=== PATIENT | female | born 1950 | race Caucasian/White ===

== ENCOUNTER 2017-06-05 09:00 | Emergency (ER) | payer MEDICARE, OTHER ==
[~2017-06-05] VITALS: Ht 160 cm; Wt 88.0 kg
[~2017-06-05 09:00] MED LIST: BACTDS PO; HUMULOG; IBUP-1542 PO; IBUP-725 PO; TYLENOL W/ CODEINE; [UNRECOGNIZED DRUG - CODE] PO; [UNRECOGNIZED DRUG - OTHER] SC
[2017-06-05 09:02] VITALS: Ht 160 cm; Wt 88.0 kg
[2017-06-05] MEDS ORDERED: SOD CHLORIDE 0.9% 1,000 ML IV STA (09:20)
[2017-06-05] MEDS ORDERED: KETOROLAC 30 MG INJ IV STA (09:20)
[2017-06-05] MEDS ORDERED: ONDANSETRON 4 MG INJ IV STA (09:20)
[2017-06-05] MEDS ORDERED: morphine 4 MG/ML VIAL IV STA (09:20)
--- NOTE | 2017-06-05 09:30 | ERD ---
ER Documentation Chief Complaint Date/Time DATE: 06/05/17 TIME: 09:25 Chief Complaint abdominal, vomiting, red blood in stool x 1 day and headache x 1 week HPI This is a 67-year-old female with a history of insulin-dependent diabetes mellitus and thyroidectomy on Synthroid over a year ago, who presents to the emergency department complaining of severe abdominal cramping that has been present for the past 7 hours. The patient indicated that she ate dinner around 7 PM and roughly 6 hours later awoke with a severe abdominal cramping. She began to have multiple episodes of loose watery stools. She did have one episode of nonbloody nonbilious emesis. The abdominal cramping is exacerbated just prior to stooling. She denies any recent antibiotics. She has had no recent travel. She denies any fever shaking or chills. She denies any neck pain. Contrary to the triage note the patient denies a headache. She did indicate that her last episode of loose stool just prior to arrival was treated with bright red blood. She has no history of hemorrhoids. She indicated that the abdominal cramping became more lies to the left lower quadrant just prior to arrival. The abdominal pain was 8 out of 10 in intensity and she did not take any analgesic medication prior to arrival ROS All systems reviewed and are negative except as per history of present illness. Medications Home Meds Active Scripts Docusate Sodium* (Colace*) 100 Mg Capsule, 100 MG PO TID, #30 CAP Prov:THA ALBERTO 06/05/17 Hydrocodone/Acetaminophen ([place] 5-325 Tablet) 1 Each Tablet, 1 TAB PO Q6H Y for PAIN, #20 TAB Prov:THA ALBERTO 06/05/17 Reported Medications Omeprazole* (Omeprazole*) 20 Mg Capsule.dr, 20 MG PO BID, #60 CAP 06/05/17 Insulin Detemir (Levemir) 100 Unit/1 Ml Vial, 40 UNIT SC DAILY, VIAL 06/05/17 Metformin* (Glucophage*) 1,000 Mg Tablet, 1000 MG PO BID, #60 TAB 06/05/17 Discontinued Reported Medications [Tylenol W/ Codeine] No Conflict Check 04/10/13 Ibuprofen (Motrin) 400 Mg Tablet, 500 MG PO PRN 04/10/13 Erythromycin* (Erythromycin* EC) 500 Mg Tabec, 500 MG PO Q 6HRS 04/10/13 [Humulog] No Conflict Check 10/21/12 [Lactus Insulin] No Conflict Check, 30 UNITS SC 10/21/12 Discontinued Scripts Ibuprofen* (Motrin*) 600 Mg Tab, 600 MG PO Q6, #30 TAB Prov:RALF GRIMALDO PA-C 05/07/15 Sulfamethoxazole-Trimethoprim* (Bactrim* DS) 800-160 Mg Tab, 1 TAB PO BID for 7 Days, TAB Prov:RALF GRIMALDO PA-C 05/07/15 Allergies Allergies: Coded Allergies: Penicillins (Verified Allergy, Mild, rash, 06/05/17) PMhx/Soc History of Surgery: No Anesthesia Reaction: No Hx Neurological Disorder: No Hx Respiratory Disorders: No Hx Cardiac Disorders: No Hx Psychiatric Problems: No Hx Miscellaneous Medical Probl: Yes (DIABETES) Hx Alcohol Use: No Hx Substance Use: No Hx Tobacco Use: No Smoking Status: Never smoker Physical Exam Vitals Vital Signs Date Time Temp Pulse Resp B/P Pulse Ox O2 Delivery O2 Flow Rate FiO2 06/05/17 11:15 97.4 59 20 122/94 98 Room Air 06/05/17 09:02 98.3 80 20 154/67 98 Physical Exam Constitutional:Well-developed. Well-nourished. HEENT:Normocephalic. Atraumatic.Pupils were equal round reactive to light. Moist mucous membranes.No tonsillar exudates. Neck: No nuchal rigidity. No lymphadenopathy. No posterior cervical spine tenderness or step-offs. Respiratory: Not using accessory muscles of respiration.Lungs were clear to auscultation bilaterally. No rhonchi. No rales. No wheezing. Cardiovascular: Regular rate regular rhythm.No murmurs. No rubs were appreciated.S1, S2 normal. Distal pulses are palpable 2+ bilaterally. GI: Abdomen was soft. Distended. Tenderness in the left lower quadrant. Hyperactive bowel sounds with no pulsatile abdominal masses or bruits. No rebound. No guarding. Bowel sounds were present and normal. : Fecal occult blood test positive. No hemorrhoids present with no gross blood per rectum Muscle skeletal: Full range of motion of both the upper and lower extremities bilaterally.Normal muscle tone.No assymetrical calf tenderness or swelling. Skin: No petechia, no purpura. No lesions on the palms or the soles of the feet. No maculopapular rash. NEURO: Patient was alert, awake, orientated x3.No facial droop. Gait observed and normal with no ataxia.Speech had regular rate and rhythm. No focal neurological deficits. Result Diagram: 06/05/1720 06/05/17 0920 Results 24 hrs Laboratory Tests Test 06/05/17 09:20 White Blood Count 9.910^3/ul Red Blood Count 4.7010^6/ul Hemoglobin 12.9g/dl Hematocrit 40.1% Mean Corpuscular Volume 85.3fl Mean Corpuscular Hemoglobin 27.4pg Mean Corpuscular Hemoglobin Concent 32.2g/dl Red Cell Distribution Width 13.4% Platelet Count 81649^3/UL Mean Platelet Volume 8.7fl Neutrophils % 60.8% Lymphocytes % 32.2% Monocytes % 5.4% Eosinophils % 0.9% Basophils % 0.5% Nucleated Red Blood Cells % 0.0/100WBC Neutrophils # 6.010^3/ul Lymphocytes # 3.210^3/ul Monocytes # 0.510^3/ul Eosinophils # 0.110^3/ul Basophils # 0.110^3/ul Nucleated Red Blood Cells # 0.010^3/ul Prothrombin Time 12.1Sec Prothrombin Time Ratio 0.9 INR International Normalized Ratio 0.90 Activated Partial Thromboplast Time 25.6Sec Urine Color YELLOW Urine Clarity CLEAR Urine pH 8.0 Urine Specific [place] 1.019 Urine Ketones NEGATIVEmg/dL Urine Nitrite NEGATIVEmg/dL Urine Bilirubin NEGATIVEmg/dL Urine Urobilinogen NEGATIVEmg/dL Urine Leukocyte Esterase NEGATIVELeu/ul Urine Microscopic RBC 5/HPF Urine Microscopic WBC 0/HPF Urine Hemoglobin 1+mg/dL Urine Glucose NEGATIVEmg/dL Urine Total Protein NEGATIVEmg/dl Sodium Level 142mmol/L Potassium Level 3.8mmol/L Chloride Level 104mmol/L Carbon Dioxide Level 31mmol/L Anion Gap 11 Blood Urea Nitrogen 16mg/dl Creatinine 0.69mg/dl Glucose Level 128mg/dl Calcium Level 8.8mg/dl Total Bilirubin 0.5mg/dl Direct Bilirubin 0.00mg/dl Indirect Bilirubin 0.5mg/dl Aspartate Amino Transf (AST/SGOT) 21IU/L Alanine Aminotransferase (ALT/SGPT) 30IU/L Alkaline Phosphatase 90IU/L Troponin I < 0.012ng/ml Total Protein 7.4g/dl Albumin 4.2g/dl Globulin 3.20g/dl Albumin/Globulin Ratio 1.31 Amylase Level 60U/L Lipase 61U/L Current Medications Medications (Trade) Dose Ordered Sig/Leonor Route PRN Reason Start Time Stop Time Status Last Admin Dose Admin Sodium Chloride (NS) 1,000 ml @ 1,000 mls/hr Q1H STAT IV 06/05/17 09:20 06/05/17 10:19 DC 06/05/17 09:31 Morphine Sulfate (morphine) 4 mg ONCE STAT IV 06/05/17 09:20 06/05/17 09:22 DC 06/05/17 09:31 Ondansetron HCl (Zofran Inj) 4 mg ONCE STAT IV 06/05/17 09:20 06/05/17 09:22 DC 06/05/17 09:30 Ketorolac Tromethamine (Toradol) 30 mg ONCE STAT IV 06/05/17 09:20 06/05/17 09:23 DC 06/05/17 09:30 IV Flush 10 ml 10 ml STK-MED ONCE .ROUTE 06/05/17 10:20 06/05/17 10:21 DC Sodium Chloride (NS) 100 ml @ ud STK-MED ONCE .ROUTE 06/05/17 10:20 06/05/17 10:21 DC Iodixanol (Visipaque Locm) 100 ml STK-MED ONCE .ROUTE 06/05/17 10:20 06/05/17 10:21 DC Procedures/MDM This patient presented to the emergency department with abdominal pain and was seen and evaluated by myself. My differential diagnosis included but was not limited to abdominal aortic aneurysm, appendicitis, pancreatitis, perforated peptic ulcer, perforated viscus, Boerhaave's syndrome or visceral pain such as diverticulitis, DKA, esophagitis, hepatitis or bowel obstruction. The patient was placed on a hospital monitor, continuous pulse oximetry, and IV access was established by nursing staff. Patient received a liter bolus of 0.9 normal saline for analgesia control received intravenous morphine and Zofran. I obtained a 12-lead EKG tracing to rule out atypical myocardial infarction. 12 Lead EKG tracing ordered and reviewed by myself showed: Normal sinus rhythm of 76 bpm and no arrhythmia. VA interval normal. QRS duration normal. No ST segment elevation No ST segment depression. No changes consistent with acute ischemia. I did obtain a CT scan of the patient's abdomen reviewed by myself and the radiologist which indicated the followin. Atherosclerosis. 2. Normal appendix. 3. Mild degenerative changes of the spine. 4. Otherwise unremarkable contrast enhanced CT scan of the abdomen and pelvis. Patient symptoms had significantly improved and she felt comfortable being discharged home. I indicated to the patient her symptoms likely could be a result of a viral etiology as she did indicate she had eaten some food at a restaurant with her brother roughly 24 hours prior to the onset of her symptoms and he had also developed severe vomiting and diarrhea diagnosed with gastroenteritis. The patient was discharged home in fair condition. They were instructed to return to the emergency department at any time if there was any worsening of their condition. The patient stated they would follow up with their PCP in the next 24-48 hours to initiate a suitable medication regimen under the care of their PCP as well as to allow their PCP to monitor any drug reactions. The patient was discharged home with prescriptions after they gave informed consent to the new medication. They were also fully informed by myself on the adverse effects and adverse drug interactions in order to provide adequate safeguards to prevent possible adverse reactions to medications. Departure Diagnosis: Primary Impression: Abdominal cramps Additional Impression: Diarrhea Diarrhea type: unspecified type Qualified Code: R19.7 - Diarrhea, unspecified type Condition: THA Cody Jun 05, 2017 09:30
[2017-06-05 09:43] LABS: ADD UMIC YES; UR ASCORBIC ACID NEGATIVE (NEGATIVE); UR BILIRUBIN (Dip) NEGATIVE (NEGATIVE); UR BLOOD (Dip) 1+ mg/dL (NEGATIVE); UR CLARITY CLEAR (CLEAR); UR COLOR YELLOW (YELLOW); UR GLUCOSE (Dip) NEGATIVE (NEGATIVE); UR KETONES (Dip) NEGATIVE (NEGATIVE); UR LEUKOCYTE ESTERASE (Dip) NEGATIVE Leu/ul (NEGATIVE); UR NITRITE (Dip) NEGATIVE (NEGATIVE); UR RBC 5 /HPF (0-5); UR SPECIFIC GRAVITY (Dip) 1.019 (1.003-1.030); UR TOTAL PROTEIN (Dip) NEGATIVE (NEGATIVE); UR UROBILINOGEN (Dip) NEGATIVE (NEGATIVE)
[2017-06-05 09:55] LABS: INR 0.9; PROTIME 12.1 Sec (12.2-14.2); PT RATIO 0.9
[2017-06-05 09:56] LABS: PARTIAL THROMBOPLASTIN TIME 25.6 Sec (25.0-35.0)
[2017-06-05 09:59] LABS: BASOPHIL # 0.1 10^3/ul (0.0-0.1); BASOPHILS % 0.5 % (0.0-2.0); EOSINOPHILS # 0.1 10^3/ul (0.0-0.5); EOSINOPHILS % 0.9 % (0.0-7.0); HEMATOCRIT 40.1 % (37.0-47.0); HEMOGLOBIN 12.9 g/dl (12.0-16.0); LYMPHOCYTES # 3.2 10^3/ul (0.8-2.9); LYMPHOCYTES % 32.2 % (15.0-51.0); MEAN CORPUSCULAR HEMOGLOBIN 27.4 pg (29.0-33.0); MEAN CORPUSCULAR HGB CONC 32.2 g/dl (32.0-37.0); MEAN CORPUSCULAR VOLUME 85.3 fl (82.0-101.0); MEAN PLATELET VOLUME 8.7 fl (7.4-10.4); MONOCYTE # 0.5 10^3/ul (0.3-0.9); MONOCYTES % 5.4 % (0.0-11.0); NEUTROPHILS % 60.8 % (39.0-77.0); PLATELET COUNT 354 10^3/UL (140-415); RED CELL DISTRIBUTION WIDTH 13.4 % (11.5-14.5); WHITE BLOOD COUNT 9.9 10^3/ul (4.8-10.8)
[2017-06-05 10:03] LABS: ALANINE AMINOTRANSFERASE 30 IU/L (13-69); ALBUMIN 4.2 g/dl (3.3-4.9); ALBUMIN/GLOBULIN RATIO 1.31; ALKALINE PHOSPHATASE 90 IU/L (42-121); AMYLASE 60 U/L (11-123); ANION GAP 11 (8-16); ASPARTATE AMINO TRANSFERASE 21 IU/L (15-46); BILIRUBIN,INDIRECT 0.5 mg/dl (0-1.1); BILIRUBIN,TOTAL 0.5 mg/dl (0.2-1.3); BLOOD UREA NITROGEN 16 mg/dl (7-20); CALCIUM 8.8 mg/dl (8.4-10.2); CARBON DIOXIDE 31 mmol/L (21-31); CHLORIDE 104 mmol/L (97-110); CREATININE 0.69 mg/dl (0.44-1.00); GLUCOSE 128 mg/dl (70-220); POTASSIUM 3.8 mmol/L (3.5-5.1); SODIUM 142 mmol/L (135-144); TOTAL PROTEIN 7.4 g/dl (6.1-8.1)
[2017-06-05 10:20] LABS: TROPONIN-I < 0.012 ng/ml (0.00-0.12)
[2017-06-05] MEDS ORDERED: IODIXANOL LOCM 100 ML BTL ONE (10:20)
[2017-06-05] MEDS ORDERED: SOD CHLORIDE 0.9% 100 ML ONE (10:20)
[2017-06-05 11:15] VITALS: BP 122/94; PULSE 59; RESP 20; TEMP 97.4
--- NOTE | 2017-06-05 11:32 | RADRPT ---
PROCEDURE: CT Abdomen and Pelvis with contrast. CLINICAL INDICATION: Abdomen and pelvis pain. Nausea and vomiting. TECHNIQUE: CT scan of the abdomen and pelvis with contrast was performed. The patient was scanned following the uncomplicated intravenous administration of 100 cc of Visipaque 320 . Coronal and sa gittal reformatted images were obtained from the axial source images. Images were reviewed on a high -resolution PACS workstation. Total exam DLP is 1166.42 mGy-cm. CTDIvol is 20.05 mGy. One or more of the following dose reduction techniques were used: Automated exposure control, adjustment of the mA and/or kV according to patient size, use of iterative reconstruction technique. COMPARISON: None. FINDINGS: The lung bases are normal. There is no pleural effusion. The liver is normal in size and attenuation. There is no focal hepatic lesion. The gallbladder and bile ducts are normal. The spleen is normal in size. There is no focal splenic lesion. Both adrenals are normal with no enlargement or mass. The pancreas is unremarkable with no mass or evidence of pancreatitis. Both kidneys demonstrate normal contrast enhancement. There is no renal mass or hydronephrosis. The abdominal aorta is not dilated. There is calcification in the aorta consistent with atherosclero sis. There is no retroperitoneal lymphadenopathy or mass. There is no pelvic lymphadenopathy or mass. The bladder and distal ureters are normal. The periappendiceal region is unremarkable with no evidence of appendicitis. The appendix is well se en and appears normal. The bowel and mesentery are normal. There is no free fluid or free gas. The osseous structures are unremarkable with no fracture or lytic lesion. There are mild degenerativ e changes of the spine. IMPRESSION: 1. Atherosclerosis. 2. Normal appendix. 3. Mild degenerative changes of the spine. 4. Otherwise unremarkable contrast enhanced CT scan of the abdomen and pelvis. RPTAT: QQ .Leo Pichardo MD, MD Date Time Electronically viewed and signed by .Leo Pichardo MD, on 06/05/2017 11:31 .R/
[2017-06-05] MEDS ORDERED: HYDR-906 PO (11:58)
[2017-06-05] MEDS ORDERED: DOCU-144 PO (11:58)
[2017-06-05] MEDS ORDERED: LEVEM SC (11:59)
[2017-06-05] MEDS ORDERED: MTF1000T PO (11:59)
[2017-06-05] MEDS ORDERED: OMEP20CA16 PO (12:00)
== END 2017-06-05 12:34 | disposition home or self-care (01) ==
LOC: E/R 09:00
DX: R10.32 Left lower quadrant pain (principal); R19.7 Diarrhea, unspecified; E11.9 Type 2 diabetes mellitus without complications; Z79.4 Long term (current) use of insulin; Z79.84 Long term (current) use of oral hypoglycemic drugs
CPT/HCPCS: 36415; 74177; 80053; 81001; 82150; 82962; 83690; 84484; 85025; 85610; 85730; 87086; 93005; 96374; 96375; 99285; J1885; J2270; J2405; J7030; Q9967

== ENCOUNTER 2017-06-23 16:35 | Emergency (ER) | payer MEDICARE, OTHER ==
[~2017-06-23] VITALS: Ht 162.6 cm; Wt 84.5 kg
[~2017-06-23 16:35] MED LIST changes: -BACTDS PO; +DOCU-144 PO; -HUMULOG; +HYDR-906 PO; -IBUP-1542 PO; -IBUP-725 PO; +LEVEM SC; +MTF1000T PO; +OMEP20CA16 PO; -TYLENOL W/ CODEINE; -[UNRECOGNIZED DRUG - CODE] PO; -[UNRECOGNIZED DRUG - OTHER] SC
[2017-06-23 16:42] VITALS: Ht 162.6 cm; Wt 84.5 kg
--- NOTE | 2017-06-23 17:53 | ERD ---
ER Documentation Chief Complaint Date/Time DATE: 06/23/17 TIME: 17:28 Chief Complaint LOWER BACK PAIN , RT LEG PAIN X 1 WEEK HPI 67-year-old female who is brought in here in the emergency department by her grandson for non-traumatic right buttock pain that radiates to right leg for about a week. Denies headache, dizziness, neck pain, difficulty swallowing, shoulder pain, chest pain, abdominal pain, back pain, nausea, vomiting, constipation, diarrhea , urinary symptoms, loss of bowel bladder control, direct trauma, injury, falls , numbness or tingling sensation, recent long travel, fever, chills. Allergies to penicillin. Past medical history of diabetes. Surgery: Stated that she has multiple surgeries. Medication: Reviewed. Social: Retired. Denies smoking, use of alcoholic beverages, use of illegal drugs. ROS All systems reviewed and are negative except as per history of present illness. Medications Home Meds Active Scripts Cyclobenzaprine Hcl* (Cyclobenzaprine Hcl*) 10 Mg Tablet, 10 MG PO Q12 Y for PAIN, #20 TAB Prov:NAYE MALCOLM 06/23/17 Docusate Sodium* (Colace*) 100 Mg Capsule, 100 MG PO TID, #30 CAP Prov:THA ALBERTO 06/05/17 Hydrocodone/Acetaminophen (Melvin 5-325 Tablet) 1 Each Tablet, 1 TAB PO Q6H Y for PAIN, #20 TAB Prov:THA ALBERTO 06/05/17 Reported Medications Omeprazole* (Omeprazole*) 20 Mg Capsule.dr, 20 MG PO BID, #60 CAP 06/05/17 Insulin Detemir (Levemir) 100 Unit/1 Ml Vial, 40 UNIT SC DAILY, VIAL 06/05/17 Metformin* (Glucophage*) 1,000 Mg Tablet, 1000 MG PO BID, #60 TAB 06/05/17 Allergies Allergies: Coded Allergies: Penicillins (Verified Allergy, Mild, rash, 06/05/17) PMhx/Soc Medical and Surgical Hx: pt denies Medical Hx, pt denies Surgical Hx History of Surgery: No Anesthesia Reaction: No Hx Neurological Disorder: No Hx Respiratory Disorders: No Hx Cardiac Disorders: No Hx Psychiatric Problems: No Hx Miscellaneous Medical Probl: Yes (DIABETES) Hx Alcohol Use: No Hx Substance Use: No Hx Tobacco Use: No Smoking Status: Never smoker Physical Exam Vitals Vital Signs Date Time Temp Pulse Resp B/P Pulse Ox O2 Delivery O2 Flow Rate FiO2 06/23/17 18:57 72 16 140/82 99 Room Air 06/23/17 16:42 99.0 90 18 147/82 98 Physical Exam Const: [] Head: Atraumatic Eyes: Normal Conjunctiva ENT: Normal External Ears, Nose and Mouth. Neck: Full range of motion..~ No meningismus. Resp: Clear to auscultation bilaterally Cardio: Regular rate and rhythm, no murmurs Abd: Soft, non tender, non distended. Normal bowel sounds. There is no right upper/right lower/epigastric/left upper/left lower abdominal tenderness and likely the patient. No peritoneal signs. Skin: No petechiae or rashes Back: No midline or flank tenderness Ext: No cyanosis, or edema. Positive right straight leg test. Bilateral hips are stable and unremarkable. Right calf is no swelling/tenderness/ discoloration. Negative Homans sign. Left lower extremities unremarkable. C- spine/T-spine/L-spine are in midline with good and full range of motion and has no swelling/bulging/discoloration/point of tenderness/deformity. Bilateral upper extremities unremarkable. Neur: Awake and alert x4. No neurological deficits. Psych: Normal Mood and Affect Results 24 hrs Current Medications Medications (Trade) Dose Ordered Sig/Leonor Route PRN Reason Start Time Stop Time Status Last Admin Dose Admin Acetaminophen/ Hydrocodone Bitart (Melvin (10/325)) 1 tab ONCE ONCE PO 06/23/17 18:00 06/23/17 18:01 DC 06/23/17 17:56 Procedures/MDM 67-year-old female who is brought in here in the emergency department by her grandson for non-traumatic right buttock pain that radiates to right leg for about a week. Denies headache, dizziness, neck pain, difficulty swallowing, shoulder pain, chest pain, abdominal pain, back pain, nausea, vomiting, constipation, diarrhea , urinary symptoms, loss of bowel bladder control, direct trauma, injury, falls , numbness or tingling sensation, recent long travel, fever, chills. Allergies to penicillin. Past medical history of diabetes. Surgery: Stated that she has multiple surgeries. Medication: Reviewed. Social: Retired. Denies smoking, use of alcoholic beverages, use of illegal drugs. Physical exam: Positive right straight leg test. Bilateral hips are stable and unremarkable. Right calf is no swelling/tenderness/discoloration. Negative Homans sign. Left lower extremities unremarkable. C-spine/T-spine/L-spine are in midline with good and full range of motion and has no swelling/bulging/ discoloration/point of tenderness/deformity. Bilateral upper extremities unremarkable. No neurovascular deficits. No neurological deficits. Abdomen: Active bowel sounds. There is no right upper/right lower/l epigastric/eft upper /left lower abdominal tenderness and likely palpation. Disease process was explained to the patient and her grandson. They both verbalized understanding and agreed with the treatment, outpatient plan of care. Treatment: Melvin. Reevaluation: Denies headache, dizziness, blurry vision, neck pain, shoulder pain, difficulty swallowing, chest pain, back pain, abdominal pain, nausea, vomiting, loss of bowel and bladder control, numbness or tingling sensation. Active bowel sounds. There is no right upper/right lower/epigastric/left upper/ left lower abdominal tenderness and light and deep palpation. Lung sounds are clear to auscultation. No neurovascular deficits. No saddle anesthesia. No neurological deficits. Differential diagnosis: Abdominal aortic aneurysm versus diabetic ketoacidosis versus lumbar strain versus DVT versus spinal fracture versus hip dislocation versus fracture versus contusion versus sprain versus sciatica I have low suspicion for diabetic ketoacidosis and abdominal aortic aneurysm due to the patient's history and my physical exam. Final diagnosis: Sciatica. Prescription: Flexeril. Follow-up with primary care physician the next 24-48 hours. PCP to refer patient to pain specialist if symptoms persist in the next couple of days. Come back to emergency department for any new symptoms or any worsening of symptoms. All questions and concerns are answered. Patient and family member verbalized understanding and agreed with the plan of care. Hemodynamically stable on discharge. Departure Diagnosis: Primary Impression: Back pain Additional Impression: Sciatica Condition: Stable Additional Instructions: Follow-up with primary care physician the next 24-48 hours. PCP to refer patient to pain specialist if symptoms persist in the next couple of days. Come back to emergency department for any new symptoms or any worsening of symptoms. All questions and concerns are answered. Patient and family member verbalized understanding and agreed with the plan of care. NAYE MALCOLM Jun 23, 2017 17:53
[2017-06-23] MEDS ORDERED: CYCL-319 PO (17:55)
[2017-06-23] MEDS ORDERED: HYDROCODONE/APAP (10/325) TAB PO ONE (18:00)
[2017-06-23 18:57] VITALS: BP 140/82; PULSE 72; RESP 16
== END 2017-06-23 18:56 | disposition home or self-care (01) ==
LOC: FTE 16:35
DX: M54.41 Lumbago with sciatica, right side (principal); E11.9 Type 2 diabetes mellitus without complications; Z79.4 Long term (current) use of insulin; Z79.84 Long term (current) use of oral hypoglycemic drugs
CPT/HCPCS: 99283